=== PATIENT | male | born 1960 | race Caucasian/White ===

== ENCOUNTER 2019-04-06 11:20 | Day surgery (SDC) | payer OTHER ==
[2019-04-05 14:53] VITALS: BMI 36.2
[~2019-04-06 11:20] MED LIST: BETAMET ACET/BETAMET NA PH 30 MG/5 ML VIAL IM ONE
[2019-04-06] MEDS ORDERED: PROPOFOL 20 ML ONE (12:14)
[2019-04-06] MEDS ORDERED: MIDAZOLAM HCL 2 MG/2 ML SINGLE DOSE VIAL ONE (12:14)
[2019-04-06] MEDS ORDERED: DEXAMETHASONE SOD PHOSPHATE 4 MG/1 ML VIAL ONE (12:16)
[2019-04-06] MEDS ORDERED: TRIAMCINOLONE ACET 40MG/1ML VIAL ONE (12:16)
[2019-04-06] MEDS ORDERED: BUPIVACAINE HCL/PF 0.75% 10 ML VIAL ONE (12:16)
[2019-04-06] MEDS ORDERED: LIDOCAINE HCL 1%, 10 MG/ML (20ML VIAL) ONE (12:16)
[2019-04-06] MEDS ORDERED: BETAMET ACET/BETAMET NA PH 30 MG/5 ML VIAL ONE (12:27)
--- NOTE | 2019-04-06 12:27 | HP ---
Admitting History and Physical - Admission Chief Complaint: left Low back and Leg Pain History of Present Illness: Pt has chronic L4 and L5 disk herniation with Left low back and Leg pain. Pt responded well to CELSO in the past. History Source: Patient - Smoking History Smoking history: Never smoked - Alcohol/Substance Use Hx Alcohol Use: No Home Medications - Allergies Allergies/Adverse Reactions: Allergies Allergy/AdvReac Type Severity Reaction Status Date / Time No Known Allergies Allergy Verified 04/06/19 12:01 - Home Medications Home Medications: Ambulatory Orders Aspirin [ASA -] 81 mg PO DAILY 04/05/19 Cyclobenzaprine HCl 10 mg PO PRN 04/05/19 Gabapentin 300 mg PO TID 04/05/19 Omeprazole 20 mg PO DAILY 04/05/19 Amlodipine Besylate/Benazepril [Amlodipine-Benazepril 5-10 mg] 1 each PO DAILY 04/06/19 Physical Examination Vital Signs: Vital Signs Temperature 99.4 F 04/06/19 12:03 Pulse Rate 106 H 04/06/19 12:03 Respiratory Rate 18 04/06/19 12:03 Blood Pressure 112/76 04/06/19 12:03 O2 Sat by Pulse Oximetry (%) 95 04/06/19 12:05 Constitutional: Yes: Well Nourished Eyes: Yes: WNL HENT: Yes: WNL Neck: Yes: WNL Cardiovascular: Yes: WNL Respiratory: Yes: WNL Musculoskeletal: Yes: Back Pain Neurological: Yes: Paresthesia Imaging - Results MRI: Image Reviewed Assessment/Plan The patients leg apin is secondary to lumbar radiculopathy. 1. Pt will recieve Left L4 and l5 TFESI. Dawit Bragg DO
[2019-04-06] MEDS ORDERED: LIDOCAINE HCL/PF 1% SDV 5ML VIAL ONE (12:44)
[2019-04-06] MEDS ORDERED: LIDOCAINE HCL 1%, 10 MG/ML (20ML VIAL) INF ONE (12:49)
[2019-04-06] MEDS ORDERED: IOHEXOL 180 MG/1 ML ML IJ ONE (12:50)
[2019-04-06] MEDS ORDERED: BETAMET ACET/BETAMET NA PH 30 MG/5 ML VIAL IM ONE (13:02)
[2019-04-06] MEDS ORDERED: LIDOCAINE HCL 1% PRESERVATIVE FREE - 30ML VIAL IJ ONE (13:03)
[2019-04-06 13:49] VITALS: TEMP 98.6
[2019-04-06 14:17] VITALS: BP 122/71; PULSE 97
--- NOTE | 2019-04-06 21:14 | PROC ---
Procedure Note Procedure: Pre procedure diagnosis: Right Lumbar Radiculopathy Post procedure diagnosis: Same Anasthesia: MAC Procedure Performed: After the risks and benefits were explained, informed consent was obtained. The patient was then taken to the procedure room and positioned prone on the procedure table. Time out was performed. The region overlying the Lef L4 and L5 neural foramens were identified using fluoroscopy. The skin was prepped and draped in the usual sterile fashion. The skin and soft tissues were anesthetized using 1% lidocaine. The neural foramens were identified with the fluoroscopic beam directed in a right oblique direction. 2 22 gauge 3.5 inch spinal needles were then introduced into the appropriate neural foramens using intermittent fluoroscopic guidance using AP, oblique and lateral views as indicated. Needle placement was then confirmed with the injection of Omnipaque 180. Epidural flow was noted and the nerve root was outlined. No vascular uptake was noted. Next, 1.5 Ml of betamethasone followed by 0.5 cc of 1% lidocaine was then injected around the Left L4 and L5 spinal nerves. The patient tolerated the procedure well and there were no complications. The patient was taken to the post procedure recovery area in good condition. Vital signs remained stable before, during, and after the procedure. The patient was given oral and written follow-up instructions. The patient was given a follow up appointment with me in the near future. Dawit Bragg DO
== END 2019-04-06 14:15 | disposition home or self-care (01) ==
LOC: JASU-SURG 11:20
PROVIDERS: ATTEND Pain Medicine Pain Medicine
PROC: 3E0R33Z Introduction of Anti-inflammatory into Spinal Canal, Percutaneous Approach (ICD-10-PCS; 2019-04-06)
PROC: 3E0R3BZ Introduction of Anesthetic Agent into Spinal Canal, Percutaneous Approach (ICD-10-PCS; principal; 2019-04-06 14:00)
DX: M54.16 Radiculopathy, lumbar region (principal); M54.5 Low back pain
CPT/HCPCS: 76000-TC-FY

== ENCOUNTER 2019-04-28 11:42 | Day surgery (SDC) | payer OTHER ==
[2019-04-27 10:26] VITALS: BMI 36.2
[2019-04-28] MEDS ORDERED: DEXAMETHASONE SOD PHOSPHATE/PF 10 MG/ML SDV ONE (16:09)
[2019-04-28] MEDS ORDERED: MIDAZOLAM HCL 2 MG/2 ML SINGLE DOSE VIAL ONE (16:19)
[2019-04-28] MEDS ORDERED: LIDOCAINE HCL 1%, 10 MG/ML (20ML VIAL) NR ONE (16:24)
[2019-04-28] MEDS ORDERED: DEXAMETHASONE SOD PHOSPHATE 10 MG/1 ML VIAL IVPB ONE (16:24)
[2019-04-28] MEDS ORDERED: BUPIVACAINE HCL/PF 0.5% (5 MG/ML) 30 ML VIAL IJ ONE (16:24)
[2019-04-28] MEDS ORDERED: IOHEXOL 180 MG/1 ML ML IJ ONE (16:28)
[2019-04-28 17:27] VITALS: BP 135/91; PULSE 99; TEMP 98
== END 2019-04-28 17:20 | disposition home or self-care (01) ==
LOC: JASU-SURG 11:42
PROVIDERS: ATTEND Pain Medicine Pain Medicine
PROC: 3E0R33Z Introduction of Anti-inflammatory into Spinal Canal, Percutaneous Approach (ICD-10-PCS; 2019-04-28)
PROC: 3E0R3BZ Introduction of Anesthetic Agent into Spinal Canal, Percutaneous Approach (ICD-10-PCS; principal; 2019-04-28 14:30)
DX: M54.16 Radiculopathy, lumbar region (principal); M54.5 Low back pain
CPT/HCPCS: J1100

== ENCOUNTER 2019-05-05 06:05 | Day surgery (SDC) | payer OTHER ==
[2019-05-04 13:10] VITALS: BMI 36.2
[2019-05-05] MEDS ORDERED: MIDAZOLAM HCL 2 MG/2 ML SINGLE DOSE VIAL ONE (07:46)
[2019-05-05] MEDS ORDERED: ROCURONIUM BROMIDE 50 MG/5 ML SYRINGE ONE (07:47)
[2019-05-05] MEDS ORDERED: PROPOFOL 20 ML ONE (07:47)
--- NOTE | 2019-05-05 08:19 | HP ---
Admitting History and Physical - Admission Chief Complaint: umbilical bulge History Source: Patient - Past Medical History Cardiovascular: Yes: HTN Gastrointestinal: Yes: GERD - Smoking History Smoking history: Never smoked Have you smoked in the past 12 months: No - Alcohol/Substance Use Hx Alcohol Use: No Home Medications - Allergies Allergies/Adverse Reactions: Allergies Allergy/AdvReac Type Severity Reaction Status Date / Time No Known Allergies Allergy Verified 05/05/19 06:35 - Home Medications Home Medications: Ambulatory Orders Aspirin [ASA -] 81 mg PO DAILY 04/05/19 Cyclobenzaprine HCl 10 mg PO PRN 04/05/19 Gabapentin 300 mg PO TID 04/05/19 Omeprazole 20 mg PO DAILY 04/05/19 Amlodipine Besylate 5 mg PO DAILY 05/05/19 Benazepril HCl [Lotensin] 10 mg PO DAILY 05/05/19 Review of Systems - Review of Systems Constitutional: reports: No Symptoms HENT: reports: No Symptoms Neck: reports: No Symptoms Cardiovascular: reports: No Symptoms Respiratory: reports: No Symptoms Gastrointestinal: reports: No Symptoms Genitourinary: reports: No Symptoms Musculoskeletal: reports: Back Pain Physical Examination Vital Signs: Vital Signs Temperature 96 F L 05/05/19 06:32 Pulse Rate 91 H 05/05/19 06:32 Respiratory Rate 16 05/05/19 06:32 Blood Pressure 120/84 05/05/19 06:32 O2 Sat by Pulse Oximetry (%) 96 05/05/19 06:32 Constitutional: Yes: Well Nourished Eyes: Yes: Conjunctiva Clear HENT: Yes: Normocephalic Neck: Yes: Supple Cardiovascular: Yes: Regular Rate and Rhythm Respiratory: Yes: CTA Bilaterally Gastrointestinal: Yes: Abdomen, Obese, Hernia (6 cm umbilical bulge, non- reducible) ...Rectal Exam: Yes: Deferred Extremities: Yes: WNL Edema: No Neurological: Yes: Alert, Oriented Psychiatric: Yes: WNL Problem List - Problems (1) Ventral hernia with obstruction Assessment/Plan: Robotic ventral/umbilical hernia repair with mesh under GA Code(s): K43.6 - OTHER AND UNSP VENTRAL HERNIA WITH OBSTRUCTION, W/O GANGRENE
[2019-05-05] MEDS ORDERED: ceFAZolin SODIUM 1 GM VIAL IVPB ONE (08:52)
[2019-05-05] MEDS ORDERED: BUPIVACAINE HCL/PF 0.5% (5 MG/ML) 30 ML VIAL IJ ONE ×2 (09:00)
[2019-05-05] MEDS ORDERED: NEOSTIGMINE METHYLSULFATE 0.5 MG/ML - 10 ML MDV ONE (10:40)
--- NOTE | 2019-05-05 10:49 | OP ---
Operative Note - Note: Operative Date: 05/05/19 Pre-Operative Diagnosis: Ventral hernia with obstruction Operation: Robotic ventral hernia repair with mesh Findings: 4 cm umbilical defect with incarcerated omentum Implants: Symbotex 15 x 10 cm mesh Surgeon: Thomas Ashby [employer] Test Engineer: Rufina Kimball Anesthesia: General Estimated Blood Loss (mls): 5 Operative Report Dictated: Yes
[2019-05-05] MEDS ORDERED: ONDANSETRON 4 MG/2 ML VIAL IVPUSH PRN ×2 (11:01→14:51)
[2019-05-05] MEDS ORDERED: oxyCODONE HCL 5 MG TABLET PO PRN ×2 (11:01→14:49)
[2019-05-05] MEDS ORDERED: PROMETHAZINE HCL 25 MG/1 ML VIAL IVPB PRN (11:01)
--- NOTE | 2019-05-05 11:32 | OP ---
DATE OF OPERATION: 05/05/2019 PROCEDURE: Robotic-assisted laparoscopic ventral hernia repair with mesh. PREOPERATIVE DIAGNOSIS: Ventral/umbilical hernia with obstruction. POSTOPERATIVE DIAGNOSIS: Ventral/umbilical hernia with obstruction. SURGEON: Thomas Ashby MD BAR MANAGER: BETTY Ralph ANESTHESIA: General endotracheal. FINDINGS AND PROCEDURE: This is a 58-year-old male who presents with a 6-cm umbilical bulge, which was nonreducible so patient was advised elective hernia repair. Consent was obtained after discussing the risks, benefits, and alternatives to the procedure. Patient was brought to the operating room and placed in supine position. General endotracheal anesthesia was administered. The abdomen was prepped and draped in the usual sterile fashion. Using 0.5% Marcaine, local anesthesia was administered to the proposed incision site. The peritoneal cavity was entered using the Veress needle technique an 8-mm left subcostal incision. The pneumoperitoneum was established , and this was followed by insertion of an 8-mm port. The 3D laparoscope was inserted , and the peritoneal cavity was carefully inspected. No inadvertent injury was noted. An incarcerated ventral hernia was identified at the level of the umbilicus containing omentum. Two 8-mm ports were inserted 8 cm away from each side, 1 at the level of the umbilicus and 1 at the left lower quadrant. The robotic arms were docked, and the target organ was set. The scope was inserted below the port. The fenestrated bipolar forceps was inserted at the left lower quadrant port, and the EndoWrist Leo were inserted at the left upper quadrant subcostal port. The undersigned then scrubbed out and commenced the console part of the procedure. The incarcerated omentum was carefully reduced by combined blunt and sharp dissection with the bipolar forceps and EndoWrist Leo. After the hernia was fully reduced, the preperitoneal fat surrounding the fat was dissected down to provide adequate placement of the mesh. The defect, which was about 4 cm in diameter was then closed with continuous V- Lock No. 1 nonabsorbable suture, and a 10 x 16-cm Symbotex mesh was deployed and anchored to the posterior abdominal wall with continuous V-Loc 2-0 absorbable sutures. After the deployment was deemed satisfactory, the peritoneal cavity was carefully inspected and was noted to be free of inadvertent bleeding, injury, or active bleeding. The instruments were removed, and the robotic arms were undocked. The pneumoperitoneum was evacuated, and the ports were removed. The wounds were closed with subcuticular Biosyn 4-0 sutures and reinforced with Dermabond. Patient was successfully extubated and transferred to the post anesthesia care unit in satisfactory condition. Estimated blood loss was about 5 mL. Wound class clean. The patient received 2 g of Ancef prior to the start of the procedure. Mika [id number] MTDD
[2019-05-05] MEDS ORDERED: ALBUTEROL SO4 0.083% IH SOL 2.5 MG/3 ML VIAL.NEB. NEB ONE ×2 (12:45→12:50)
[2019-05-05] MEDS ORDERED: HYDROmorphone HCl 2 MG/ML VIAL IVPUSH ONE ×3 (14:34→16:00)
[2019-05-05] MEDS ORDERED: HYDROmorphone HCl 2 MG/ML VIAL ONE (14:37)
[2019-05-05] MEDS ORDERED: ALBUTEROL SO4 2.5/IPRATROPIUM 0.5 INH SOL 3 ML VIAL.NEB. NEB ONE (14:45)
[2019-05-05] MEDS ORDERED: ACETAMINOPHEN 325 MG TABLET (FP) PO PRN (14:51)
[2019-05-05] MEDS ORDERED: ACETAMINOPHEN 1000 MG/100 ML VIAL (NON FORMULARY) IVPB ONE ×2 (16:24→16:25)
[2019-05-05] MEDS ORDERED: DEXAMETHASONE SOD PHOSPHATE 4 MG/1 ML VIAL ONE (17:16)
[2019-05-05] MEDS ORDERED: DEXAMETHASONE SOD PHOSPHATE 4 MG/1 ML VIAL IVPUSH ONE (17:19)
[2019-05-05] MEDS: DEXAMETHASONE SOD PHOSPHATE 4 MG/1 ML VIAL IVPUSH SCH (18:20)
[2019-05-05] MEDS: oxyCODONE HCL 5 MG TABLET PO PRN (18:36)
[2019-05-05] MEDS: LACTATED RINGERS SOLUTION 1,000 ML IV SCH (19:00)
[2019-05-05] MEDS: GABAPENTIN 300 MG CAPSULE PO SCH (22:07)
[2019-05-06] MEDS: DEXAMETHASONE SOD PHOSPHATE 4 MG/1 ML VIAL IVPUSH SCH ×2 (01:38→09:34)
[2019-05-06] MEDS: oxyCODONE HCL 5 MG TABLET PO PRN ×2 (04:27→13:50)
[2019-05-06] MEDS: GABAPENTIN 300 MG CAPSULE PO SCH ×2 (05:16→15:10)
[2019-05-06] MEDS: LACTATED RINGERS SOLUTION 1,000 ML IV SCH (05:17)
--- NOTE | 2019-05-06 09:31 | SURG ---
Surgery General Administrator Note General Administrator: Rufina Kimball PA-C Date of Service: 05/05/19 Diagnosis: Ventral hernia with obstruction Procedure: Robotic ventral hernia repair with mesh I was present for the entirety of the operative procedure. For further detail, please refer to operative report. Visit type - Case Type Case Type: Scheduled - Emergency Emergency Visit: No - New patient This patient is new to me today: Yes Date on this admission: 05/06/19
[2019-05-06] MEDS ORDERED: PANTOPRAZOLE 20 MG TABLET PO SCH (10:00)
[2019-05-06] MEDS ORDERED: LISINOPRIL 10 MG TABLET (FP) PO SCH (10:00)
[2019-05-06] MEDS ORDERED: amLODIPine BESYLATE 5 MG TABLET (FP) PO SCH (10:00)
[2019-05-06] MEDS ORDERED: ASPIRIN 81 MG CHEWABLE TABLETS PO SCH (10:00)
[2019-05-06 10:11] VITALS: TEMP 98.2
--- NOTE | 2019-05-06 13:28 | CON.PULM ---
Consult Consult Specialty:: PULM/CCM Referred by:: LAURY Reason for Consultation:: Hypoxemia - History of Present Illness Chief Complaint: Abdominal pain - History Source History Provided By: Patient, Family Member Limitations to Obtaining History: No Limitations - Past Medical History Cardio/Vascular: Yes: HTN Pulmonary: Yes: Other (Possible OSAS ). No: Asthma, Bronchitis, Cancer, COPD, O2 Dependent, Pneumonia, Previously Intubated, Pulmonary Embolus, Pulmonary Fibrosis Gastrointestinal: Yes: GERD - Alcohol/Substance Use Hx Alcohol Use: No - Smoking History Smoking history: Never smoked Have you smoked in the past 12 months: No Home Medications - Allergies Allergies/Adverse Reactions: Allergies Allergy/AdvReac Type Severity Reaction Status Date / Time No Known Allergies Allergy Verified 05/05/19 06:35 - Home Medications Home Medications: Ambulatory Orders Aspirin [ASA -] 81 mg PO DAILY 04/05/19 Cyclobenzaprine HCl 10 mg PO PRN 04/05/19 Gabapentin 300 mg PO TID 04/05/19 Omeprazole 20 mg PO DAILY 04/05/19 Amlodipine Besylate 5 mg PO DAILY 05/05/19 Benazepril HCl [Lotensin] 10 mg PO DAILY 05/05/19 Oxycodone HCl/Acetaminophen [Percocet 5-325 mg Tablet] 1 - 2 tab PO Q6H PRN #20 tab MDD 8 05/05/19 Physical Exam Vital Sings: Vital Signs Temperature 98.2 F 05/06/19 08:40 Pulse Rate 109 H 05/06/19 08:40 Respiratory Rate 17 05/06/19 08:40 Blood Pressure 132/78 05/06/19 08:40 O2 Sat by Pulse Oximetry (%) 93 L 05/05/19 21:00 DHRUV Screen - DHRUV History Previously diagnosed with Sleep Apnea: No If Yes, currently using CPAP to treat your DHRUV: No - SNORING Do you snore loudly (enough to be heard thru closed doors)?: Yes - TIRED Do you often feel tired, fatigued, or sleepy during daytime?: Yes - OBSERVED Has anyone observed you stop breathing during your sleep?: Yes - BLOOD PRESSURE Do you have or are being treated for high blood pressure?: Yes - BMI Answer Y if weight exceeds amount listed for your height: Yes .: HEIGHT & WEIGHT (lbs): 410" 167lbs; 4'11" 175 lbs; 5'0" 179lbs;. 5 '1" 185lbs; 5'2" 191lbs; 5'3" 197lbs;. 5'4" 204lbs; 5'5" 210lbs; 5'6" 216lbs;. 5'7" 223lbs; 5'8" 230lbs; 5'9" 237lbs;. 5'10" 243lbs ; 5'11" 250lbs; 6' 258lbs;. 6'1" 265lbs; 6'2" 272lbs; 6'3" 279lbs ;. 6'4" 287lbs; 6'5" 295lbs - AGE Is your age over 50 yrs old?: Yes - NECK CIRCUMFERENCE Neck Circumference 40cm: Yes - GENDER Male: Yes - SCORE Total Score: 8 Score Interpretation: High Risk of DHRUV .: Interpretation: Score 0-2: Low Risk DHRUV. Score 3-4: Intermediate Risk DHRUV. Score 5-8: High Risk DHRUV
--- NOTE | 2019-05-06 14:09 | CONSULT ---
Addendum entered and electronically signed by Tyrel Nuñez, RESIDENT 05/06/19 17:13: Labs performed and reviewed. No abnormalities noted Original Note: Consultation: CONSULT SERVICE: In-house Hospitalist HISTORY OF PRESENT ILLNESS: 58yo M with h/o of HTN and GERD who presented originally to the facility for robotic ventral hernia repairs with Dr. Ashby. Pt reports having pain at the surgical sites that have been mitigated with his pain medication as provided by the post-operative orders. We were asked to evaluate the patient due to noted hypoxia with resolution using 2LNC post-operative day 1. Pt currently is now saturating on RA with resulting 92% SpO2 without any notable distress. Pt reports that otherwise he does not have any fever/chill, cough, palpitations, chest pain, lower extremity swelling or calf tenderness. Pt denies any urinary difficulties as well. cardiac monitor: NSR roughly 70-80's bpm at present. No alarms noted PMHx: As above PSHx: Robotic ventral hernia repair (05/05/2019; Dr. Ashby) SoHx: Tobacco - Former smoker remote history Alcohol - Occassional Drugs - None Independent with ADLs FamHx: Noncontributory REVIEW OF SYSTEMS: As above PHYSICAL EXAMINATION Vital Signs - 24 hr 05/05/19 05/05/19 05/05/19 14:15 14:30 14:45 Temperature Pulse Rate 95 H 94 H 96 H Respiratory 15 15 15 Rate Blood Pressure 118/79 131/74 115/77 O2 Sat by Pulse 93 L 93 L 93 L Oximetry (%) 05/05/19 05/05/19 05/05/19 15:00 15:15 15:30 Temperature Pulse Rate 94 H 90 96 H Respiratory 15 16 17 Rate Blood Pressure 113/66 117/74 129/82 O2 Sat by Pulse 93 L 93 L 94 L Oximetry (%) 05/05/19 05/05/19 05/05/19 15:45 16:00 16:15 Temperature Pulse Rate 94 H 95 H 94 H Respiratory 17 18 14 Rate Blood Pressure 126/71 122/79 130/71 O2 Sat by Pulse 94 L 95 95 Oximetry (%) 05/05/19 05/05/19 05/05/19 16:30 16:45 17:00 Temperature 98.9 F Pulse Rate 94 H 95 H 95 H Respiratory 13 14 18 Rate Blood Pressure 119/72 122/77 123/83 O2 Sat by Pulse 95 95 95 Oximetry (%) 05/05/19 05/05/19 05/05/19 17:15 18:00 18:24 Temperature 98.9 F 97.9 F Pulse Rate 96 H 98 H Respiratory 18 16 16 Rate Blood Pressure 122/80 138/85 O2 Sat by Pulse 95 100 Oximetry (%) 05/05/19 05/06/19 05/06/19 21:00 02:00 05:04 Temperature 98.6 F 97.9 F 98.1 F Pulse Rate 83 93 H 87 Respiratory 18 18 16 Rate Blood Pressure 130/77 138/79 138/85 O2 Sat by Pulse 93 L Oximetry (%) 05/06/19 08:40 Temperature 98.2 F Pulse Rate 109 H Respiratory 17 Rate Blood Pressure 132/78 O2 Sat by Pulse Oximetry (%) GENERAL: Awake, alert, and fully oriented, in no acute distress. HEENT: NC/AT, EOMI, DIONY, sclera anicteric, MMM NECK: No JVD, no tracheal deviation LUNGS: Shallow breaths, but no wheezes or rales noted. No accessory muscle use. RA 92%. HEART: RRR, normal S1 and S2 without murmur ABDOMEN: Soft, nondistendend, L-sided surgical sites covered with bandages, no drainage noted, minimal tenderness with palpation around surgical sites, no guarding. EXTREMITIES: 2+ pulses, warm, well-perfused. No calf tenderness. No peripheral edema. PSYCHIATRIC: Cooperative. Good eye contact. Appropriate mood and affect. SKIN: Warm, dry, normal turgor, no rashes or lesions noted. Active Medications Generic Name Dose Route Start Last Admin Trade Name Freq PRN Reason Stop Dose Admin Acetaminophen 650 mg 05/05/19 14:51 05/05/19 22:09 Tylenol - PO 650 mg Q6H PRN Administration PAIN LEVEL 1 - 3 Amlodipine Besylate 5 mg 05/06/19 10:00 05/06/19 09:34 Norvasc - PO 5 mg DAILY CARTER Administration Aspirin 81 mg 05/06/19 10:00 05/06/19 09:34 Asa - PO 81 mg DAILY CARTER Administration Dexamethasone Sodium Phosphate 4 mg 05/05/19 18:00 05/06/19 09:34 Decadron Injection - IVPUSH 4 mg Q8H-IV CARTER Administration Fentanyl 50 mcg 05/05/19 14:33 Sublimaze Injection - IVPUSH [id number] PRN PAIN-PACU ORDER X 4 DOSES ONLY Gabapentin 300 mg 05/05/19 22:00 05/06/19 05:16 Neurontin - PO 300 mg TID CARTER Administration Lactated Ringer's 1,000 mls @ 75 mls/hr 05/05/19 11:15 05/06/19 05:17 Lactated Ringers Solution IV 75 mls/hr ASDIR CARTER Administration Lisinopril 10 mg 05/06/19 10:00 05/06/19 09:34 Prinivil PO 10 mg DAILY CARTER Administration Ondansetron HCl 4 mg 05/05/19 11:01 05/05/19 18:37 Zofran Injection IVPUSH 4 mg Q6H PRN Administration NAUSEA AND/OR VOMITING Oxycodone HCl 5 mg 05/05/19 11:01 Roxicodone - PO Q4H PRN PAIN LEVEL 4-6 Oxycodone HCl 10 mg 05/05/19 14:50 05/06/19 13:50 Roxicodone - PO 10 mg Q6H PRN Administration PAIN LEVEL 7-10 Pantoprazole Sodium 20 mg 05/06/19 10:00 05/06/19 09:34 Protonix - PO 20 mg DAILY CARTER Administration Promethazine HCl 12.5 mg 05/05/19 11:01 Phenergan Injection - IVPB Q6H PRN NAUSEA-FOR RESCUE AFTER 15 MIN ASSESSMENT/PLAN: L sided atelectasis with respiratory splinting History of HTN, controlled History of GERD --CXR ordered by pulmonology noted to have L-sided atelectasis and poor inspiratory effort --Respiratory splinting due to post-operative pain --Encourage incentive spirometer --Sleep screen which can be performed on outpatient setting --Basic labs to check Hgb and electrolytes: CBC, BMP; will f/u results ( discharged prior to lab draws) --Discussed with pulmonology --Continued post-operative care per Dr. Ashby Case discussed with Dr. Shayy Nuñez, DO - IM PGY-3 <Tyrel Nuñez - Last Filed: 05/06/19 15:47> Consultation: Case discussed with me. Patient discharged by Surgery prior to my medical interview and physical examination.I support the resident in his medical judgment. There does not appear to be any acute medical issues. Management of respiratory issues as per Pulmonary. Thank you. <Eduar Lucas - Last Filed: 05/06/19 18:22> Visit type - Emergency Visit Emergency Visit: No - New Patient This patient is new to me today: Yes Date on this admission: 05/06/19 - Critical Care Critical Care patient: No <Tyrel Nuñez - Last Filed: 05/06/19 15:47> ATTENDING PHYSICIAN STATEMENT I saw and evaluated the patient. I reviewed the resident's note and discussed the case with the resident. I agree with the resident's findings and plan as documented. SUBJECTIVE: OBJECTIVE: ASSESSMENT AND PLAN: <Tyrel Nuñez - Last Filed: 05/06/19 15:47> ATTENDING PHYSICIAN STATEMENT I saw and evaluated the patient. I reviewed the resident's note and discussed the case with the resident. I agree with the resident's findings and plan as documented. SUBJECTIVE: OBJECTIVE: ASSESSMENT AND PLAN: <Eduar Lucas - Last Filed: 05/06/19 18:22>
[2019-05-06 14:14] VITALS: BP 126/87; PULSE 105
--- NOTE | 2019-05-06 14:14 | PN ---
Progress Note (short form) - Note Progress Note: Anesthesiology 58 y.o. man POD#1 s/p Robotic ventral hernia repair under GA. Pt. doing well. He has been seen by Pulmonary due to post-op hypoxia; no further intervention needed per Pulmonary (see consult). VSS. No other acute issues. Stable post-operative course, resolving hypoxia. Continue management as per primary team.
--- NOTE | 2019-05-06 15:08 | PN ---
Progress Note (short form) - Note Progress Note: S/P Robotic ventral hernia repair with mesh Admitted for 23 hour stay for resp insufficiency CXR showed atelectasis Currently saturating at 92/5 on room air Pulmonary and medical evaluation appreciated r/o OSAS Abd: obese, port site dressings intact, mild to moderate umbilical tenderness( expected on POD #1) abdominal binder noted to be at lower chest - removed to relieve restriction A/P: Post-op atelectasis, r/o OSAS May D/C home as far as surgical issue is concerned Encouraged patient to ambulate May use abdominal binder prn for comfort Problem List - Problems (1) Ventral hernia with obstruction Code(s): K43.6 - OTHER AND UNSP VENTRAL HERNIA WITH OBSTRUCTION, W/O GANGRENE
[2019-05-06 16:32] LABS: HEMATOCRIT 45.5 % (35.4-49); HEMOGLOBIN 15.6 GM/dL (11.7-16.9); MCH 31.2 pg (25.7-33.7); MCHC 34.2 g/dl (32.0-35.9); MEAN CELL VOLUME 91.1 fl (80-96); PLATELET COUNT 273 K/MM3 (134-434); RDW 13.7 % (11.9-15.9)
[2019-05-06 16:51] LABS: BLOOD UREA NITROGEN 14.8 mg/dL (7-18); CALCIUM 9.2 mg/dL (8.5-10.1); CREATININE 1.1 mg/dL (0.55-1.3); POTASSIUM 4.4 mmol/L (3.5-5.1)
== END 2019-05-06 18:14 | disposition home or self-care (01) ==
LOC: JASU-SURG 06:05 → JASUSAT 06:05 → J4S 18:11 → JASUSAT 05-06 18:14
PROVIDERS: ATTEND Surgery
PROC: 8E0W4CZ Robotic Assisted Procedure of Trunk Region, Percutaneous Endoscopic Approach (ICD-10-PCS; 2019-05-05)
PROC: 0WUF4JZ Supplement Abdominal Wall with Synthetic Substitute, Percutaneous Endoscopic Approach (ICD-10-PCS; principal; 2019-05-05 08:00)
DX: K43.9 Ventral hernia without obstruction or gangrene (principal)
CPT/HCPCS: 49652; S2900; 36415; 71045-TC-FY; 80048; 85027; 86850; 86900; 86901; 94760; J0131